=== PATIENT | female | born 1945 ===

== ENCOUNTER 2018-03-23 14:47 | Outpatient (CLI) | payer OTHER ==
[~2018-03-23 14:47] MED LIST: METFORMIN HYDRO25 GM MC; TENORMIN0.5 MG/ML IV; VYTORIN 10-40 M1 TAB PO
[2018-03-29] MEDS ORDERED: ENALAPRIL MALEAT5 MG PO (14:50)
[2018-03-29] MEDS ORDERED: SYNTHROID50 MCG PO (14:50)
[2018-03-29] MEDS ORDERED: GLIMEPIRIDE1 MG PO (14:50)
[2018-03-29] MEDS ORDERED: ZETIA10 MG PO (14:51)
[2018-03-29] MEDS ORDERED: SYNTH PO (14:51)
[2018-03-29] MEDS ORDERED: SIMBASTATIN PO (14:52)
[2018-03-29] MEDS ORDERED: ZINC LOZENGES1 EACH PO (14:52)
[2018-03-29] MEDS ORDERED: [UNRECOGNIZED DRUG - OTHER] PO (14:53)
[2018-03-29] MEDS ORDERED: NEURIN SL (14:53)
[2018-03-29] MEDS ORDERED: FOLIC ACID1 MG PO (14:54)
== END 2018-03-23 14:58 | disposition home or self-care (01) ==
LOC: RAD 14:47
DX: C50.411 Malignant neoplasm of upper-outer quadrant of right female breast (principal); I10 Essential (primary) hypertension

== ENCOUNTER 2018-04-03 07:00 | Day surgery (SDC) | payer OTHER ==
[~2018-04-03] VITALS: Ht 152.4 cm; Wt 46.3 kg
[~2018-04-03 07:00] MED LIST changes: +ENALAPRIL MALEAT5 MG PO; +FOLIC ACID1 MG PO; +GLIMEPIRIDE1 MG PO; +NEURIN SL; +SIMBASTATIN PO; +SYNTH PO; +SYNTHROID50 MCG PO; +ZETIA10 MG PO; +ZINC LOZENGES1 EACH PO; +[UNRECOGNIZED DRUG - OTHER] PO
== END 2018-04-04 07:00 | disposition home or self-care (01) ==
LOC: CIR.AMB 07:00 → SURH 09:45 → EDSTATUS 14:45 → SURH 14:57 → O/R 14:57 → CIR.AMB 04-04 07:00 → SURH 04-04 09:59 → O/R 04-04 09:59
DX: C50.411 Malignant neoplasm of upper-outer quadrant of right female breast (principal)